=== PATIENT | male | born 1940 | race Caucasian/White ===

== ENCOUNTER 2018-02-14 02:28 | Outpatient (CLI) | payer BC, MEDICARE | END 2018-02-14 23:59 | disposition home or self-care (01) | LOC: DIABETIC 02:28 | PROVIDERS: ATTEND Internal Medicine Critical Care Medicine | DX: I12.9 Hypertensive chronic kidney disease with stage 1 through stage 4 chronic kidney disease, or unspecified chronic kidney disease (principal); N18.9 Chronic kidney disease, unspecified | CPT/HCPCS: G0108 ==

== ENCOUNTER 2021-06-18 15:42 | Outpatient (CLI) | payer MEDICARE, BC ==
[2021-06-18 17:26] LABS: CLARITY,URINE TURBID (Clear); COLOR,URINE BROWN (Yellow); GLUCOSE, URINE NEGATIVE (Neg); KETONES,URINE TRACE mg/dl (Neg); LEUKOCYTE ESTERASE ,URINE MODERATE (Neg); NITRITES, URINE NEGATIVE (Neg); OCCULT BLOOD,URINE LARGE (Neg); PH,URINE 8.5 (4.8-8.0); PROTEIN,URINE >=300 mg/dl (Neg); UROBILINOGEN,URINE 0.2 E.U/dL (0.2-1.0)
[2021-06-18 17:46] LABS: TOTAL PROTEIN,URINE RANDOM 677.2 MG/DL; UA PROTEIN/CREATININE RATIO 20.52 mg/mg Cr (0-0.16)
[2021-06-18 17:52] LABS: UA COLLECTION TYPE CLN CATCH MIDSTREAM
[2021-06-18 17:53] LABS: BACTERIA,URINE FEW /HPF (Neg); RBC,URINE 20-50 /HPF (0-2); SQUAMOUS EPITHELIAL CELL,UR NONE SEEN /LPF (FEW); WBC,URINE TNTC /HPF (0-4)
[2021-06-18 17:54] LABS: MUCUS STRANDS FEW /LPF (Neg)
[2021-06-21 15:02] LABS: A/G RATIO 0.7 (0.7-1.7); ALBUMIN 2.7 g/dL (2.9-4.4); BETA GLOBULIN 0.8 g/dL (0.7-1.3); GAMMA GLOBULIN 1.4 g/dL (0.4-1.8); GLOBULIN, TOTAL 3.7 g/dL (2.2-3.9); M-SPIKE Not Observed g/dL (Not Observed); PROTEIN, TOTAL, SERUM 6.4 g/dL (6.0-8.5)
[2021-06-23 16:29] LABS: ALBUMIN, UR 24.6 % (.); ALPHA-1-GLOBULIN,UR 4.5 % (.); ALPHA-2-GLOBULIN,UR 11.1 % (.); BETA GLOBULIN, UR 30.4 % (.); GAMMA GLOBULIN,UR 29.4 % (.); M-SPIKE, % 4.4 % (Not Observed)
== END 2021-06-18 23:59 | disposition home or self-care (01) ==
LOC: LAB 15:42
PROVIDERS: ATTEND Internal Medicine Critical Care Medicine
DX: R53.1 Weakness (principal); I12.9 Hypertensive chronic kidney disease with stage 1 through stage 4 chronic kidney disease, or unspecified chronic kidney disease; N18.9 Chronic kidney disease, unspecified; Z11.2 Encounter for screening for other bacterial diseases; Z99.2 Dependence on renal dialysis
CPT/HCPCS: 36415; 81001; 82570; 84155; 84156; 84165; 84166; 87088